=== PATIENT | female | born 1975 | race Caucasian/White ===

== ENCOUNTER 2017-10-20 09:19 | Day surgery (SDC) | payer OTHER ==
[~2017-10-20] VITALS: Ht 160 cm; Wt 68.0 kg
[~2017-10-20 09:19] MED LIST: FLEXERIL5 MG PO; LEXAPRO20 MG PO; LOESTRIN 1/21 TABLET PO; NEURONTIN300 MG PO; NEXIUM40 MG PO; PERCOCET 5/31 TABLET PO; ULTRAM50 MG PO
== END 2017-10-20 11:45 | disposition home or self-care (01) ==
LOC: PAIN 09:19 → SDC 10:00 → PAIN 11:45
DX: M54.2 Cervicalgia (principal); G89.29 Other chronic pain; M54.81 Occipital neuralgia; L40.59 Other psoriatic arthropathy; R51 Headache; M79.1 Myalgia; R20.0 Anesthesia of skin; K21.9 Gastro-esophageal reflux disease without esophagitis; F41.9 Anxiety disorder, unspecified; Z88.0 Allergy status to penicillin; Z88.2 Allergy status to sulfonamides; Z79.891 Long term (current) use of opiate analgesic
CPT/HCPCS: J1030; J1885; J2250; J2405; J3010; S0020

== ENCOUNTER 2017-11-14 14:26 | Observation (INO) | payer OTHER ==
[~2017-11-14] VITALS: Ht 160 cm; Wt 70.9 kg
[2017-11-14 15:32] LABS: HEMATOCRIT 44.8 % (36.0-46.0); HEMOGLOBIN 14.7 G/DL (11.9-15.5); MCH 27.9 PG (29.0-34.0); MCHC 32.8 G/DL (30.0-36.0); PLATELET COUNT 413 K/uL (156-360); RBC DIS.WIDTH-CV 15.4 % (11.8-14.6); RBC DIS.WIDTH-SD 48.1 % (39-53); RED BLOOD COUNT 5.27 M/uL (3.80-5.20); WHITE BLOOD COUNT 8.3 K/uL (4.1-10.2)
[2017-11-14 15:42] LABS: CHLORIDE 108 mEq/L (99-109); POTASSIUM 3.6 mEq/L (3.7-5.4); SODIUM 141 mEq/L (136-147)
[2017-11-14 15:44] LABS: GLUCOSE 102 mg/dL (70-99)
[2017-11-14 15:48] LABS: CREATININE 0.9 mg/dL (0.6-1.3); GFR ESTIMATE (CALCULATED) > 59 mL/min/
[2017-11-14 15:49] LABS: UREA NITROGEN (BUN) 8 mg/dL (9-23)
[2017-11-14 16:38] LABS: MONOSPOT (MONONUCLEOSIS SEROL) NEGATIVE
[2017-11-14] MEDS ORDERED: TYLENOL REGULA325 MG PO (19:01)
[2017-11-14] MEDS ORDERED: PROAIR HFA8.5 GM IH (19:06)
[2017-11-14] MEDS ORDERED: DOXYCYCLINE HY100 MG PO (19:08)
[2017-11-14] MEDS ORDERED: PREDNISONE20 MG PO (19:08)
[2017-11-14] MEDS ORDERED: ALBUTEROL2.5 MG/3 M IH (19:09)
[2017-11-14 19:54] LABS: TROP-I INTERPRETATION NEGATIVE; TROPONIN-I < 0.01 ng/mL (0.0-0.30)
[2017-11-14 22:21] VITALS: BP 162/87
[2017-11-15 04:09] VITALS: BP 125/76
[2017-11-15 05:36] LABS: HEMATOCRIT 41.5 % (36.0-46.0); HEMOGLOBIN 13.4 G/DL (11.9-15.5); MCH 27.3 PG (29.0-34.0); MCHC 32.3 G/DL (30.0-36.0); MCV 84.7 FL (83-99); PLATELET COUNT 378 K/uL (156-360); RBC DIS.WIDTH-CV 15.3 % (11.8-14.6); RBC DIS.WIDTH-SD 47.2 % (39-53)
[2017-11-15 06:01] LABS: CHLORIDE 103 MEQ/L (99-109); CREATININE 0.9 MG/DL (0.6-1.3); GFR ESTIMATE (CALCULATED) > 59 mL/min/; GLUCOSE 134 mg/dL (70-99); POTASSIUM 4.2 MEQ/L (3.7-5.4); SODIUM 136 MEQ/L (136-147); UREA NITROGEN (BUN) 10 mg/dL (9-23)
[2017-11-15 08:10] VITALS: BP 135/91
[2017-11-15 11:49] VITALS: BP 129/71
[2017-11-15 15:52] VITALS: BP 159/89
[2017-11-15] MEDS ORDERED: BENZONATATE100 MG PO (18:09)
[2017-11-15] MEDS ORDERED: GUAIFENESI100 MG/5 M PO (18:09)
[2017-11-15] MEDS ORDERED: PREDNISONE10 MG PO (18:09)
== END 2017-11-15 19:24 | disposition home or self-care (01) ==
LOC: EME 14:26 → EDOF 18:51 → ENRESERV 18:55 → 5WEST 22:07
PROVIDERS: Internal Medicine; Nurse Practitioner Family
DX: J20.9 Acute bronchitis, unspecified (principal); R06.03 Acute respiratory distress; J45.901 Unspecified asthma with (acute) exacerbation; G43.909 Migraine, unspecified, not intractable, without status migrainosus; K21.9 Gastro-esophageal reflux disease without esophagitis; R49.0 Dysphonia; E87.6 Hypokalemia; G89.29 Other chronic pain; L40.50 Arthropathic psoriasis, unspecified; Z87.891 Personal history of nicotine dependence; Z90.49 Acquired absence of other specified parts of digestive tract; Z88.0 Allergy status to penicillin; Z88.2 Allergy status to sulfonamides; Z88.5 Allergy status to narcotic agent
CPT/HCPCS: 71275; 80048; 84484; 85027; 86308; 93005; 94640; 94640 76; 99202; 99281; 99285; G0378; J1650; J1956; J2930; J7509

== ENCOUNTER 2017-12-07 11:00 | Day surgery (SDC) | payer OTHER ==
[~2017-12-07] VITALS: Ht 160 cm; Wt 68.0 kg
[~2017-12-07 11:00] MED LIST changes: +ALBUTEROL2.5 MG/3 M IH; +BENZONATATE100 MG PO; +DOXYCYCLINE HY100 MG PO; +GUAIFENESI100 MG/5 M PO; +PREDNISONE10 MG PO; +PREDNISONE20 MG PO; +PROAIR HFA8.5 GM IH; +TYLENOL REGULA325 MG PO
== END 2017-12-07 12:45 | disposition home or self-care (01) ==
LOC: PAIN 11:00 → SDC 11:30 → PAIN 12:45
DX: M47.812 Spondylosis without myelopathy or radiculopathy, cervical region (principal); G89.29 Other chronic pain; M54.81 Occipital neuralgia; M46.92 Unspecified inflammatory spondylopathy, cervical region; L40.50 Arthropathic psoriasis, unspecified; Z88.0 Allergy status to penicillin; Z88.1 Allergy status to other antibiotic agents; Z88.2 Allergy status to sulfonamides
CPT/HCPCS: J1030; J2250; S0020